=== PATIENT | female | born 1985 | race Two or more races ===

== ENCOUNTER 2022-11-28 06:23 | Emergency (ER) | payer OTHER ==
[~2022-11-28] VITALS: Ht 160 cm; Wt 72.6 kg
[2022-11-28] MEDS ORDERED: SYNTHROID112 MCG (06:32)
== END 2022-11-28 11:36 | disposition home or self-care (01) ==
LOC: ER 06:23
DX: O20.8 Other hemorrhage in early pregnancy (principal); Z3A.08 8 weeks gestation of pregnancy; E03.9 Hypothyroidism, unspecified; O21.9 Vomiting of pregnancy, unspecified

== ENCOUNTER 2022-12-04 14:26 | Outpatient (CLI) | payer OTHER ==
[~2022-12-04 14:26] MED LIST: SYNTHROID112 MCG
== END 2022-12-04 14:40 | disposition home or self-care (01) ==
LOC: SONOGRAMA 14:26
PROVIDERS: ATTEND Specialist
DX: O03.9 Complete or unspecified spontaneous abortion without complication (principal)

== ENCOUNTER 2023-01-02 07:14 | Outpatient (CLI) | payer OTHER | END 2023-01-02 07:26 | disposition home or self-care (01) | LOC: RAD 07:14 | DX: R07.89 Other chest pain (principal) ==